=== PATIENT | male | born 1995 | race Caucasian/White ===

== ENCOUNTER 2019-05-28 23:09 | Emergency (ER) | payer SELFPAY ==
[~2019-05-28] VITALS: Ht 180.3 cm; Wt 114.5 kg
[2019-05-28 23:11] VITALS: BP 133/75; TEMP 96.7
[2019-05-29 01:22] VITALS: PULSE 85
== END 2019-05-29 01:23 | disposition home or self-care (01) ==
LOC: COL.ER 23:09
DX: R11.10 Vomiting, unspecified (principal); T40.7X5A Adverse effect of cannabis (derivatives), initial encounter
CPT/HCPCS: J2405; J7030